=== PATIENT | male | born 1970 | race Caucasian/White ===

== ENCOUNTER 2017-04-22 05:55 | Emergency (ER) | payer SELFPAY ==
[~2017-04-22] VITALS: Ht 177.8 cm; Wt 96.0 kg
[2017-04-22 05:56] VITALS: BP 158/95; PULSE 89; RESP 16; TEMP 97.7; O2SAT 98
[2017-04-22] MEDS ORDERED: LISI40TA PO (06:52)
[2017-04-22] MEDS ORDERED: LIPI40TA PO (06:52)
[2017-04-22] MEDS ORDERED: ASPI81CH CHEW (06:52)
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
== END 2017-04-22 07:34 | disposition left against medical advice (07) ==
LOC: NEPD 05:55
DX: S40.021A Contusion of right upper arm, initial encounter (principal); W22.8XXA Striking against or struck by other objects, initial encounter
CPT/HCPCS: 99281